=== PATIENT | male | born 1945 | race Caucasian/White ===

== ENCOUNTER 2017-12-20 10:00 | Emergency (ER) | payer MEDICARE, OTHER ==
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
[2017-12-20 10:42] VITALS: BP 108/62
== END 2017-12-20 11:04 | disposition home or self-care (01) ==
LOC: UCCORT 10:00
DX: S50.12XA Contusion of left forearm, initial encounter (principal); W20.8XXA Other cause of strike by thrown, projected or falling object, initial encounter; Y93.9 Activity, unspecified; Y99.9 Unspecified external cause status; E11.9 Type 2 diabetes mellitus without complications; I10 Essential (primary) hypertension; J44.9 Chronic obstructive pulmonary disease, unspecified
CPT/HCPCS: 99212; G0463